=== PATIENT | male | born 1965 | race Caucasian/White ===

== ENCOUNTER → 2020-01-06 16:14 | Outpatient (CLI) | payer OTHER, SELFPAY ==
--- NOTE | ~2020-01-06 | XR_ITS ---
EXAMINATION: XR shoulder RT min 2V EXAM DATE: 01/06/2020 16:37 INDICATION: No known recent injury provided at this time. Pain of the right shoulder. TECHNIQUE: The following right shoulder projections obtained: frontal projection with internal rotati on, frontal projection with external rotation, Grashey, and axillary (4+ views). There is no prior s tudy for comparison. FINDINGS: No evidence of right shoulder rotator cuff calcific tendinosis. There is moderate acromi oclavicular joint primary osteoarthritis. There are no acute fractures or dislocations identified. T here is no subcutaneous gas. The soft tissue is unremarkable. There are no radiopaque foreign bodi es. IMPRESSION: Moderate right acromioclavicular osteoarthritis. Reviewed, dictated and finalized at location A.
--- NOTE | ~2020-01-06 | XR_ITS ---
EXAMINATION:[id number] DATE: 01/06/2020 16:37 INDICATION: Neck pain TECHNIQUE: AP, lateral, lateral swimmers and odontoid views of the cervical spine are provided. COMPARISON: 02/22/2015 FINDINGS: There is straightening of the cervical spine which can be positional or due to muscular spa sm. Alignment is normal. The odontoid is intact. No fracture is identified. The vertebral body height s are maintained. There is mild loss of intervertebral disc space height at C6-7. Small degenerative osteophytes project from the anterior endplates of multiple vertebral bodies. Prevertebral soft tissu es are normal. There is mild facet osteoarthritis at C4-5. IMPRESSION: 1. Mild cervical spondylosis without acute findings or significant interval change. Reviewed, dictated and finalized at location A. IMPRESSION: 1. Mild cervical spondylosis without acute findings or significant interval lo nge.
== END ==
PROVIDERS: PCP Family Medicine; Visit Provider Physician Assistant
DX: M54.12 Radiculopathy, cervical region (principal); M25.511 Pain in right shoulder; M19.011 Primary osteoarthritis, right shoulder; M47.812 Spondylosis without myelopathy or radiculopathy, cervical region
CPT/HCPCS: 72040; 73030

== ENCOUNTER 2022-03-03 00:59 | Day surgery (SDC) | payer OTHER, SELFPAY ==
[2022-02-21 13:50] VITALS: BMI 38.7
[2022-03-03 09:06] VITALS: BP 127/78; PULSE 69; RESP 18; TEMP 36.8; O2SAT 98; BMI 39.5
[2022-03-03] MEDS: LACTATED RINGERS 1,000 ML 150 ML IV CONT (09:14)
--- NOTE | 2022-03-03 09:16 | WPDANESEPPF ---
Anes - Initial Pre Proc Eval Procedure: Operation Date: 03/03/22 10:00 Proposed Procedures p Screening Colonoscopy - Dwaine Koo MD Date/Time: 03/03/22 09:16 Surgeon: Dwaine Koo MD Pre Op Diagnosis: fam history of colon cancer Patient Data Age: 56 Gender: M Height: 1.78 m Weight: 125 kg Last Vital Signs Temp 98.2 F 03/03/22 09:06 Pulse 69 03/03/22 09:06 Resp 18 03/03/22 09:06 BP 127/78 03/03/22 09:06 Pulse Ox 98 03/03/22 09:06 O2 Del Method Room Air 03/03/22 09:06 Allergies Allergy/AdvReac Type Severity Reaction Status Date / Time tomato Allergy Unknown INCREASED Verified 02/21/22 13:48 HEART RATE Home Medications Medication Instructions Recorded Confirmed Type testosterone cypionate 200 mg/mL 200 mg IM ONCE 06/22/21 02/21/22 History intramuscular oil (Depo-Testosterone) simvastatin 40 mg tablet See Rx Instructions .Route 12/16/21 02/21/22 Rx .COMPLEX #90 tabs aripiprazole 2 mg tablet 2 mg PO DAILY 01/16/22 02/21/22 History finasteride 5 mg tablet 5 mg PO DAILY 01/16/22 02/21/22 History topiramate 25 mg tablet 25 mg PO DAILY 01/16/22 02/21/22 History vilazodone 40 mg tablet (Viibryd) 40 mg PO DAILY 01/16/22 02/21/22 History lisinopril 10 See Rx Instructions .Route 02/24/22 Rx mg-hydrochlorothiazide 12.5 mg .COMPLEX #90 tabs tablet sodium,potassium,mag sulfates 17.5 See Rx Instructions PO .COMPLEX 02/27/22 Rx gram-3.13 gram-1.6 gram oral soln #354 mL (Suprep Bowel Prep Kit) Patient hx anesthesia problems: none Family hx anesthesia problems: none Results Review: All pre-operative results and documents have been reviewed as part of the pre-operative evaluation. [facility] Past Medical History Medical History Biceps rupture, distal Family History Family History Father Diabetes mellitus Hypertension Family history of elevated blood lipids Carcinoma of colon, Onset Age: 69 Family history of aortic aneurysm Family history of coronary artery disease Asthma Mother Family history of cardiovascular disease Family history of coronary artery disease Diabetes mellitus Hypertension Grandparent Cerebrovascular accident Other Family history of lung disease Family history of malignant neoplasm Social History Social History (Updated 02/20/22 @ 16:15 by KATLIN Alberts) Smoking status: Never smoker Tobacco type: smokeless tobacco Smokeless tobacco user: chewing tobacco Second hand tobacco smoke exposure: No Additional smoking assessment comments: Used chewing tobacco for 15 to 20 years Alcohol intake: current Alcohol use details: RARELY Substance use: never Substance use type: does not use Lack of Transportation: No Lack of Food: Never True Current Housing: I Have Housing Concerned About Future Housing: No Difficulty Paying Gas/Electric Bills: No Difficulty Paying for Meds: No Currently Unemployed: No Education: Trade/Vocational Certificate Difficulty w/ Childcare or Family Care: No Living arrangements: alone 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 Gender identity (if verbalized by the patient): Male Sexual Orientation (if Verbalized by the Patient): Straight or Heterosexual Spiritual care concerns: No Agree to blood products: Yes Anes - Eval Final PreProcedure Day of Procedure 03/03/22 09:16 Patient weight: normal Heart: regular rate and rhythm Lungs: clear to auscultation Airway: Mallampati scale class III Neurological: alert and oriented Last oral intake: >/= 8 hours ASA classification: III Emergent: no Anesthetic plan: proceed Anesthesia type and monitoring: general GIVS and standard monitoring Results Review: All pre-operative results and documents have been reviewed as part of the pre-operative evaluation. Informed Consent
--- NOTE | 2022-03-03 09:46 | PM.HPGS ---
History of Present Illness History of Present Illness Consent: Risks, benefits, and alternatives have been discussed and questions answered. Patient agrees to proceed with procedure. Chief complaint: fam history of colon cancer Narrative: Maulik Zhu Jr. is a 56 year old male Presents for colonoscopy. Patient's current weight appetite and bowel movements are normal. Patient denies abdominal pain. He has had no bleeding. Family history is significant that his father had colon cancer, his brother had colon polyps. Patient presents today for neoplasia screening colonoscopy. Last exam in stool 10 years ago. Review of Systems Review of Systems: Review of systems noncontributory. [facility] Past Medical History Medical History Biceps rupture, distal Family History Family History Father Diabetes mellitus Hypertension Family history of elevated blood lipids Carcinoma of colon, Onset Age: 69 Family history of aortic aneurysm Family history of coronary artery disease Asthma Mother Family history of cardiovascular disease Family history of coronary artery disease Diabetes mellitus Hypertension Grandparent Cerebrovascular accident Other Family history of lung disease Family history of malignant neoplasm Social History Social History (Updated 02/20/22 @ 16:15 by KATLIN Alberts) Smoking status: Never smoker Tobacco type: smokeless tobacco Smokeless tobacco user: chewing tobacco Second hand tobacco smoke exposure: No Additional smoking assessment comments: Used chewing tobacco for 15 to 20 years Alcohol intake: current Alcohol use details: RARELY Substance use: never Substance use type: does not use Lack of Transportation: No Lack of Food: Never True Current Housing: I Have Housing Concerned About Future Housing: No Difficulty Paying Gas/Electric Bills: No Difficulty Paying for Meds: No Currently Unemployed: No Education: Trade/Vocational Certificate Difficulty w/ Childcare or Family Care: No Living arrangements: alone 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 Gender identity (if verbalized by the patient): Male Sexual Orientation (if Verbalized by the Patient): Straight or Heterosexual Spiritual care concerns: No Agree to blood products: Yes Meds Home Medications and Allergies Home Medications Medication Instructions Recorded Confirmed Type testosterone cypionate 200 mg/mL 200 mg IM ONCE 06/22/21 02/21/22 History intramuscular oil (Depo-Testosterone) simvastatin 40 mg tablet See Rx Instructions .Route 12/16/21 02/21/22 Rx .COMPLEX #90 tabs aripiprazole 2 mg tablet 2 mg PO DAILY 01/16/22 02/21/22 History finasteride 5 mg tablet 5 mg PO DAILY 01/16/22 02/21/22 History topiramate 25 mg tablet 25 mg PO DAILY 01/16/22 02/21/22 History vilazodone 40 mg tablet (Viibryd) 40 mg PO DAILY 01/16/22 02/21/22 History lisinopril 10 See Rx Instructions .Route 02/24/22 Rx mg-hydrochlorothiazide 12.5 mg .COMPLEX #90 tabs tablet sodium,potassium,mag sulfates 17.5 See Rx Instructions PO .COMPLEX 02/27/22 Rx gram-3.13 gram-1.6 gram oral soln #354 mL (Suprep Bowel Prep Kit) Allergies Allergy/AdvReac Type Severity Reaction Status Date / Time tomato Allergy Unknown INCREASED Verified 02/21/22 13:48 HEART RATE Vital Signs Vital Signs - 24 hr 03/03/22 09:06 Temperature 98.2 F Pulse Rate 69 Respiratory Rate 18 Blood Pressure 127/78 Pulse Oximetry 98 Oxygen Delivery Room Air Exam Narrative: Physical exam reveals patient be alert. Vital signs stable. HEENT exam is unremarkable. Patient anicteric. Lungs are clear to auscultation and percussion. Heart is without murmur or extra sounds. Abdomen bowel sounds are present soft nontender with no organomegaly. Digital external rectal exam is
[2022-03-03 10:14] VITALS: BP 102/75; PULSE 92; RESP 20; O2SAT 97
[2022-03-03 10:24] VITALS: BP 110/69; PULSE 80; RESP 20; O2SAT 97
[2022-03-03 10:34] VITALS: BP 129/65; PULSE 75; RESP 18; O2SAT 97
== END 2022-03-03 10:42 | disposition home or self-care (01) ==
PROVIDERS: PCP Family Medicine; Visit Provider Internal Medicine Gastroenterology
PROC: 0DJD8ZZ Inspection of Lower Intestinal Tract, Via Natural or Artificial Opening Endoscopic (ICD-10-PCS; CPT 45378; principal; 2022-03-03 10:00)
DX: Z12.11 Encounter for screening for malignant neoplasm of colon (principal); K64.8 Other hemorrhoids; Z80.0 Family history of malignant neoplasm of digestive organs; F17.220 Nicotine dependence, chewing tobacco, uncomplicated
CPT/HCPCS: 45378; J2704; J7120

== ENCOUNTER 2023-01-29 09:50 | Outpatient (CLI) | payer OTHER, SELFPAY ==
--- NOTE | 2023-02-19 17:27 | WPDHOMESLEEP ---
Sleep Study - Home Unattended Date of Study: 01/29/23 Ordering Provider: Papi Bah MD Interpreting Provider: Joanna Batres, DO Home Sleep Study Type: Watch PAT Height: 1.78 m Weight: 127.006 kg Body Mass Index: 40.1 Neck Circumference (inches): 18 [place]: 11 Reason for Sleep Study Unrefreshing sleep, snoring Sleep History The patient is a 57-year-old male with depression, hypertension, benign prostatic hyperplasia, hyperlipidemia and hypogonadism that had a sleep study ordered by his primary care physician for evaluation of sleep apnea. The patient frequently awakens from sleep short of breath. He occasionally awakens at night with cough. He frequently snores and is frequently loud enough others complain. He frequently has trouble sleeping when he has a cold. He frequently wakes up gasping for air throughout the night. He frequently has breathing problems at night observed by himself or others. He occasionally sweats excessively at night. He occasionally has heart palpitations or irregular heartbeats during the night. He frequently falls asleep during the day but never while driving. He denies sleep paralysis and cataplexy. He occasionally has trouble at school or work due to sleepiness. He occasionally experiences vivid dreamlike scenes upon awakening or falling asleep. He denies feeling afraid of going to sleep. He denies having nightmares. He occasionally remembers his dreams. He occasionally has thoughts racing through his mind. He occasionally feels sad, depressed and anxious. He denies having muscular tension. He occasionally notices parts of his body jerk. He rarely kicks during the night. He rarely has crawling and aching feelings in his legs and rarely has leg pain during the night. He frequently grinds his teeth during sleep but occasionally awakens with morning jaw pain. He is rarely bothered by pain during the day and rarely awakened by pain during the night. He occasionally wakes up feeling stiff in morning. He rarely wakes up with sore or achy muscles. He rarely wakes up with pain in the neck, spine or other joints. He goes to bed at 9:00 p.m. on both weekdays and weekends. It takes him 20 minutes to fall asleep. He wakes up 6-10 times throughout the night to get a drink and laid back down. It can take him 20 minutes or up to 2 hours to fall back asleep. He wakes up at 4:00 a.m. on weekdays and at 6:00 a.m. the weekends. He typically gets 8-9 hours of sleep per night. He will stay in bed for 10 minutes after waking up in the morning. He currently lives with his and adult child. He denies consuming any caffeinated beverages within 2 hours of bedtime. He denies engaging in physical exercise before bedtime. He will read and watch television before falling asleep. He will take naps in afternoon or the evening but they are not refreshing. He will consume caffeinated beverages throughout the day. He denies tobacco, alcohol and recreational drug use. [facility] Past Medical History Medical History Acute right-sided low back pain without sciatica Biceps rupture, distal Other asthma Other mixed anxiety disorders Unilateral inguinal hernia, without obstruction or gangrene, not specified as recurrent Family History Family History Father Diabetes mellitus Hypertension Family history of elevated blood lipids Carcinoma of colon, Onset Age: 69 Family history of aortic aneurysm Family history of coronary artery disease Asthma Mother Family history of cardiovascular disease Family history of coronary artery disease Diabetes mellitus Hypertension Grandparent Cerebrovascular accident Other Family history of lung disease Family history of malignant neoplasm Social History Social History Social History: Ca
[2023-02-19 17:42] VITALS: BMI 40.1
--- NOTE | 2023-04-23 16:55 | WPDSLEEPSTUD ---
Sleep Study Ordering Provider: Papi Bah MD Interpreting Physician: Joanna Batres DO Height: 1.78 m Weight: 127.006 kg Body Mass Index: 40.1 Neck Circumference (inches): 18 [place]: 11 Reason for Sleep Study The patient had a WatchPAT home sleep test on 01/29/2023 that showed an overall AHI of 39.9 with desaturation down to 74%. He spent 26.4 minutes with SpO2<88%. Sleep History The patient is a 57-year-old male with depression, hypertension, benign prostatic hyperplasia, hyperlipidemia and hypogonadism that had a sleep study ordered by his primary care physician for evaluation of sleep apnea.? The patient frequently awakens from sleep short of breath.? He occasionally awakens at night with cough.? He frequently snores and is frequently loud enough others complain.? He frequently has trouble sleeping when he has a cold.? He frequently wakes up gasping for air throughout the night.? He frequently has breathing problems at night observed by himself or others.? He occasionally sweats excessively at night.? He occasionally has heart palpitations or irregular heartbeats during the night.? He frequently falls asleep during the day but never while driving.? He denies sleep paralysis and cataplexy.? He occasionally has trouble at school or work due to sleepiness.? He occasionally experiences vivid dreamlike scenes upon awakening or falling asleep.? He denies feeling afraid of going to sleep.? He denies having nightmares.? He occasionally remembers his dreams.? He occasionally has thoughts racing through his mind.? He occasionally feels sad, depressed and anxious.? He denies having muscular tension.? He occasionally notices parts of his body jerk.? He rarely kicks during the night.? He rarely has crawling and aching feelings in his legs and rarely has leg pain during the night.? He frequently grinds his teeth during sleep but occasionally awakens with morning jaw pain.? He is rarely bothered by pain during the day and rarely awakened by pain during the night.? He occasionally wakes up feeling stiff in morning.? He rarely wakes up with sore or achy muscles.? He rarely wakes up with pain in the neck, spine or other joints. He goes to bed at 9:00 p.m. on both weekdays and weekends.? It takes him 20 minutes to fall asleep.? He wakes up 6-10 times throughout the night to get a drink and laid back down.? It can take him 20 minutes or up to 2 hours to fall back asleep.? He wakes up at 4:00 a.m. on weekdays and at 6:00 a.m. the weekends.? He typically gets 8-9 hours of sleep per night.? He will stay in bed for 10 minutes after waking up in the morning.? He currently lives with his and adult child.? He denies consuming any caffeinated beverages within 2 hours of bedtime.? He denies engaging in physical exercise before bedtime.? He will read and watch television before falling asleep.? He will take naps in afternoon or the evening but they are not refreshing. He will consume caffeinated beverages throughout the day.? He denies tobacco, alcohol and recreational drug use. [facility] Past Medical History Medical History Acute right-sided low back pain without sciatica Biceps rupture, distal Other asthma Other mixed anxiety disorders Unilateral inguinal hernia, without obstruction or gangrene, not specified as recurrent Family History Family History Father Diabetes mellitus Hypertension Family history of elevated blood lipids Carcinoma of colon, Onset Age: 69 Family history of aortic aneurysm Family history of coronary artery disease Asthma Mother Family history of cardiovascular disease Family history of coronary artery disease Diabetes mellitus Hypertension Grandparent Cerebrovascular accident Other Family history of lung disease Family history of malignant neoplasm Social History Social History (Reviewed 04/23/23
== END 2023-01-30 09:46 | disposition home or self-care (01) ==
LOC: ANHCSM 09:51
PROVIDERS: PCP Family Medicine; Visit Provider Family Medicine
DX: G47.33 Obstructive sleep apnea (adult) (pediatric) (principal)
CPT/HCPCS: 95800

== ENCOUNTER 2023-04-02 08:24 | Outpatient (CLI) | payer OTHER, SELFPAY ==
--- NOTE | 2023-04-23 16:55 | SLEEP_ITS ---
This report was moved to the correct visit on 04/24/2023. The original report was signed by Joanna Batres DO on 04/23/231811. Sleep Study Ordering Provider: Papi Bah MD Interpreting Physician: Joanna Batres DO Height: 1.78 m Weight: 127.006 kg Body Mass Index: 40.1 Neck Circumference (inches): 18 [place]: 11 Reason for Sleep Study The patient had a WatchPAT home sleep test on 01/29/2023 that showed an overall AHI of 39.9 with desaturation down to 74%. He spent 26.4 minutes with SpO2<88%. Sleep History The patient is a 57-year-old male with depression, hypertension, benign prostatic hyperplasia, hyperlipidemia and hypogonadism that had a sleep study ordered by his primary care physician for evaluation of sleep apnea.? The patient frequently awakens from sleep short of breath.? He occasionally awakens at night with cough.? He frequently snores and is frequently loud enough others complain.? He frequently has trouble sleeping when he has a cold.? He frequently wakes up gasping for air throughout the night.? He frequently has breathing problems at night observed by himself or others.? He occasionally sweats excessively at night.? He occasionally has heart palpitations or irregular heartbeats during the night.? He frequently falls asleep during the day but never while driving.? He denies sleep paralysis and cataplexy.? He occasionally has trouble at school or work due to sleepiness.? He occasionally experiences vivid dreamlike scenes upon awakening or falling asleep.? He denies feeling afraid of going to sleep.? He denies having nightmares.? He occasionally remembers his dreams.? He occasionally has thoughts racing through his mind.? He occasionally feels sad, depressed and anxious.? He denies having muscular tension.? He occasionally notices parts of his body jerk.? He rarely kicks during the night.? He rarely has crawling and aching feelings in his legs and rarely has leg pain during the night.? He frequently grinds his teeth during sleep but occasionally awakens with morning jaw pain.? He is rarely bothered by pain during the day and rarely awakened by pain during the night.? He occasionally wakes up feeling stiff in morning.? He rarely wakes up with sore or achy muscles.? He rarely wakes up with pain in the neck, spine or other joints. He goes to bed at 9:00 p.m. on both weekdays and weekends.? It takes him 20 minutes to fall asleep.? He wakes up 6-10 times throughout the night to get a drink and laid back down.? It can take him 20 minutes or up to 2 hours to fall back asleep.? He wakes up at 4:00 a.m. on weekdays and at 6:00 a.m. the weekends.? He typically gets 8-9 hours of sleep per night.? He will stay in bed for 10 minutes after waking up in the morning.? He currently lives with his and adult child.? He denies consuming any caffeinated beverages within 2 hours of bedtime.? He denies engaging in physical exercise before bedtime.? He will read and watch television before falling asleep.? He will take naps in afternoon or the evening but they are not refreshing. He will consume caffeinated beverages throughout the day.? He denies tobacco, alcohol and recreational drug use. [facility] Past Medical History Medical History Acute right-sided low back pain without sciatica Biceps rupture, distal Other asthma Other mixed anxiety disorders Unilateral inguinal hernia, without obstruction or gangrene, not specified as recurrent Family History Family History Father Diabetes mellitus Hypertension Family history of elevated blood lipids Carcinoma of colon, Onset Age: 69 Family history of aortic aneurysm Family history of coronary artery disease Asthma Mother
== END 2023-04-03 05:29 | disposition home or self-care (01) ==
LOC: ANHCSM 08:26
PROVIDERS: PCP Family Medicine; Visit Provider Family Medicine
DX: G47.33 Obstructive sleep apnea (adult) (pediatric) (principal)
CPT/HCPCS: 95811

== ENCOUNTER 2023-04-18 09:41 | Outpatient (CLI) | payer OTHER, SELFPAY ==
[2023-04-18 14:04] LABS: Basophils Absolute Auto 0.1 K/mm3 (0.0-0.1); Basophils Percent Auto 0.8 % (0.2-1.2); Eosinophils Absolute Auto 0.2 K/mm3 (0-0.3); Eosinophils Percent Auto 2.5 % (0-4.4); Hematocrit 47.5 % (42.0-52.0); Immature Granulocyte Percent A 1.1 % (0-0.5); Lymphocytes Absolute Auto 2.24 K/mm3 (0.9-3.2); Lymphocytes Percent Auto 23.8 % (18.3-44.2); Mean Corpuscular HGB Conc 33.7 g/dl (32-36); Mean Corpuscular Hemoglobin 30.3 pg (26-34); Mean Platelet Volume 10.6 fl (7.4-10.4); Monocytes Absolute Auto 0.9 K/mm3 (0.1-0.6); Monocytes Percent Auto 9.9 % (2.6-8.5); Neutrophils Absolute Auto 5.8 K/mm3 (1.3-6.7); Neutrophils Percent Auto 61.9 % (45.5-73.1); Platelet Count Result 213 k/mm3 (150-375); Red Blood Count 5.28 M/mm3 (4.6-6.20); White Blood Count 9.4 K/mm3 (4.5-10.0)
[2023-04-18 14:19] LABS: D Dimer 0.37 ug/mL (<0.48)
[2023-04-18 15:19] LABS: Alanine Aminotransferase 60 U/L (6-50); Albumin Level 4.5 g/dL (3.5-5.1); Alkaline Phosphatase 76 U/L (38-126); Anion Gap 7 mmol/L (8-16); Aspartate Amino Transferase 43 U/L (17-59); Bilirubin,Total 0.5 mg/dL (0.2-1.3); Blood Urea Nitrogen 20 mg/dL (9-20); Calcium 9.7 mg/dL (8.4-10.2); Carbon Dioxide 29 mmol/L (22-30); Chloride 102 mmol/L (98-107); Cholesterol 263 mg/dL (0-200); Estimated Glomerular Filt Rate > 60; Glucose 130 mg/dL (65-110); HDL Direct 35 mg/dL; Potassium 4.4 mmol/L (3.4-5.0); Sodium 138 mmol/L (137-145); Triglycerides 490 mg/dL (<150)
[2023-04-18 15:28] LABS: NT Pro B Type Natriuretic Pept < 20 pg/mL (19.9-100)
[2023-04-18 15:30] LABS: LDL Cholesterol Direct 124 mg/dL
[2023-04-18 16:38] LABS: Hemoglobin A1C 6.1 % (<5.7)
== END 2023-04-18 09:42 | disposition home or self-care (01) ==
LOC: ANHGOSHLAB 09:42
PROVIDERS: PCP Family Medicine; Visit Provider Family Medicine
DX: E78.5 Hyperlipidemia, unspecified (principal); R00.0 Tachycardia, unspecified; R06.02 Shortness of breath
CPT/HCPCS: 36415; 80053; 80061; 83036; 83880; 84443; 85025; 85380

== ENCOUNTER 2023-04-26 09:11 | Outpatient (CLI) | payer OTHER, SELFPAY ==
--- NOTE | 2023-04-26 09:24 | ECHO_ITS ---
Patient Info Name: Maulik Zhu Age: 57 years : 1965 Gender: Male Ht: 70 in Wt: 283 lbs BSA: 2.57 m2 HR: 89 bpm BP: 140 / 82 mmHg Technical Quality: Fair Exam Date: 04/26/2023 10:05 AM Exam Location: Echo Lab Patient Status: Outpatient Admit Date: 04/26/2023 Staff Ordering Physician: Migdalia Espinosa Attending Provider: Migdalia Espinosa Referring Physician: Francisca HERNANDEZ; Exam Type: CA echo doppler color flow Study Info Indications R06.02 - Shortness of breath Complete two-dimensional, color flow and Doppler transthoracic echocardiogram is performed. Summary 1. Complete two-dimensional, color flow and Doppler transthoracic echocardiogram is performed. 2. Left ventricular chamber dimension is normal. 3. Left ventricular systolic function is normal, estimated at 60-65%. 4. There is mild concentric increased left ventricular wall thickness. 5. The left ventricular diastolic function is grade I diastolic dysfunction. 6. E/e' 8 is minimally elevated. 7. Left atrial chamber dimension is moderately enlarged. Left Ventricle E/e' 8 is minimally elevated. Left ventricular chamber dimension is normal. Left ventricular systolic function is normal, estimated at 60-65%. There is mild concentric increased left ventricular wall thickness. The left ventricular diastolic function is grade I diastolic dysfunction. Right Ventricle Right ventricular systolic function is normal and with normal TAPSE 2.3 cm. Right ventricular chamber dimension is normal. Left Atria Left atrial chamber dimension is moderately enlarged. Right Atria Right atrial chamber dimension is normal. Aortic Valve The aortic valve is trileaflet. There is no aortic valve stenosis. There is no aortic valve regurgitation. Pulmonic Valve There is no pulmonic regurgitation. Mitral Valve There is no mitral valve stenosis. There is no mitral valve regurgitation. Tricuspid Valve There is no tricuspid valve regurgitation. Pericardium/Pleural There is no pericardial effusion. Inferior Vena Cava Normal inferior vena cava with >50% collapse upon inspiration consistent with normal right atrial pressure, 5 mmHg. Aorta The aortic root size at the sinus of Valsalva is normal. Left Ventricular Outflow Tract Name Value Normal LVOT 2D LVOT Diameter 2.1 cm LVOT Doppler LVOT Peak Gradient 3 mmHg LVOT Mean Gradient 2 mmHg LVOT VTI 23 cm LVOT VTI/AV VTI Ratio 0.9 LVOT Stroke Volume 76 ml LVOT CO 4.8 l/min LVOT CI 1.8 l/min/m2 Pulmonic Valve Name Value Normal PV Doppler PV Peak Gradient 2 mmHg PV Regurgitation Doppler FL Peak End Diastolic Velocity
== END 2023-04-26 09:12 | disposition home or self-care (01) ==
LOC: ANHCARD 09:11
PROVIDERS: PCP Family Medicine; Visit Provider Nurse Practitioner Family
DX: R00.0 Tachycardia, unspecified (principal); G47.33 Obstructive sleep apnea (adult) (pediatric); R06.02 Shortness of breath
CPT/HCPCS: 93306

== ENCOUNTER 2024-07-15 15:30 | Outpatient (RCR) | payer OTHER, SELFPAY | END 2024-08-25 09:31 | disposition home or self-care (01) | LOC: ANHDMC 15:30 | PROVIDERS: PCP Family Medicine; Visit Provider Nurse Practitioner Family | DX: E11.9 Type 2 diabetes mellitus without complications (principal); Z71.89 Other specified counseling | CPT/HCPCS: G0108 ==

== ENCOUNTER 2024-12-07 10:52 | Emergency (ER) | payer OTHER, SELFPAY ==
[2024-12-07 11:00] VITALS: BP 116/73; PULSE 99; RESP 18; TEMP 36.8; O2SAT 97
--- NOTE | 2024-12-07 11:43 | ED.URI ---
HPI - URI/Sore Throat General Chief Complaint: Upper Respiratory Infection Stated Complaint: Sinus Time Seen by Provider: 12/07/24 11:43 Source: patient Mode of arrival: ambulatory Limitations: no limitations History of Present Illness HPI Narrative: 59 yo M presents with c/o sinus pain, pressure, congestion for 2 wks. Symptoms getting progressively worse. using Claritin, Flonase and pseudoephedrine. Reports that drainage has changed from yellow to green. Patient reports fatigue the past 2 days. Patient concern for Sinus infection. Patient Uses CPAP, is having difficulty wearing mask due to congestion. All systems reviewed and negative except as noted above. Related Data Home Medications ?Medication ?Instructions ?Recorded ?Confirmed ?Last Taken ?Type finasteride 5 mg tablet 5 mg PO DAILY 01/16/22 07/30/24 Unknown History vilazodone 40 mg tablet (Viibryd) 40 mg PO DAILY 01/16/22 07/30/24 Unknown History Allergies Allergy/AdvReac Type Severity Reaction Status Date / Time tomato Allergy Unknown INCREASED Verified 07/30/24 11:18 HEART RATE NKDA Allergy Mild NONE Uncoded 07/30/24 11:18 PMFSH Past Medical History Medical History Unilateral inguinal hernia, without obstruction or gangrene, not specified as recurrent Other mixed anxiety disorders Other asthma Acute right-sided low back pain without sciatica Biceps rupture, distal Surgical History Surgical History S/P peroneal tendon repair Right Ankle Family History Family History Father Diabetes mellitus Hypertension Family history of elevated blood lipids Carcinoma of colon, Onset Age: 69 Family history of aortic aneurysm Family history of coronary artery disease Asthma Mother Family history of cardiovascular disease Family history of coronary artery disease Diabetes mellitus Hypertension Grandparent Cerebrovascular accident Other Family history of lung disease Family history of malignant neoplasm Social History Social History Social History: Caffeine-minimal Smoking status: Never smoker Tobacco type: smokeless tobacco Smokeless tobacco user: chewing tobacco Second hand tobacco smoke exposure: No Additional smoking assessment comments: Used chewing tobacco for 15 to 20 years Alcohol intake: current Alcohol use details: RARELY Substance use: never Substance use type: does not use Do You Feel Safe in your Home?: Yes Lack of Transportation: No Lack of Food: Never True Current Housing: I Have Housing Concerned About Future Housing: No Difficulty Paying Gas/Electric Bills: No Difficulty Paying for Meds: No Currently Unemployed: No Education: Trade/Vocational Certificate Difficulty w/ Childcare or Family Care: No Living arrangements: alone Occupation/Education: occupation 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 There is no relevant family history pertinent to the presenting complaint. Exam Narrative: GENERAL: This is a well-nourished, well-developed patient, Ill-appearing but no acute distress HEAD: normocephalic, atraumatic. EYES: PERRL. erythematous to lower eyelids, conjunctiva injected bilaterally. No drainage bilaterally. Vision is grossly intact. EARS: External ears normal, auditory canals clear and without drainage, Fluid bilateral TMs without erythema or perforation. Hearing grossly intact. NOSE: External nose normal with Purulent nasal drainage, swelling and erythema to bilateral nares. Right-sided maxillary sinus tenderness on palpation. THROAT: Mucous membranes moist, Erythematous with purulent postnasal drainage. NECK: Neck supple, non-tender without lymphadenopathy, masses or thyromegaly. CARDIOVASCULAR: Regular rate and rhythm without murmurs, gallops, or rubs. RESPIRATORY: Clear to auscultation. Breath sounds equal bilaterally. No wheezes, rales, or rhonchi. SKIN: warm, Dry, intact with no suspicious lesions or rash, good texture and turgor. NEURO: awake, alert, and oriented to person, place and time. There were no obvious focal neurologic abnormalities. EXTREMITIES: No joint tenderness, effusion, or edema noted. Course Course Level of Care: Express Care Visit Vital Signs Vital signs: Vital Signs Temperature 36.8 C 12/07/24 11:00 Pulse Rate 99 12/07/24 11:00 Respiratory Rate 18 12/07/24 11:00 Blood Pressure 116/73 12/07/24 11:00 Pulse Oximetry 97 12/07/24 11:00 Oxygen Delivery Room Air 12/07/24 11:00 Temperature 36.8 C 12/07/24 11:00 Pulse Rate 99 12/07/24 11:00 Respiratory Rate 18 12/07/24 11:00 Blood Pressure 116/73 12/07/24 11:00 Pulse Oximetry 97 12/07/24 11:00 Oxygen Delivery Room Air 12/07/24 11:00 reviewed MDM - URI/Sore Throat MDM Narrative Medical decision making narrative: will treat patient for bacterial sinusitis due to duration of symptoms and exam findings. Differential Diagnosis Differential diagnosis: Likely upper respiratory infection, sinusitis, viral infection, influenza and pharyngitis Discharge Plan Discharge Clinical Impression: Acute bacterial sinusitis Patient Disposition: Home Condition: Stable Instructions: Antibiotic Form, Sinusitis (ED) Additional Instructions: take antibiotic as prescribed until gone. Continue Flonase, Claritin in pseudoephedrine as directed on packaging. Drink at least 64 oz of water a day. See your doctor if symptoms are not improving. Patient Language: Bruneian Prescriptions: New amoxicillin-pot clavulanate 875-125 mg tablet 1 tablet PO Q12H 10 Days Qty: 20 0RF No Action vilazodone [Viibryd] 40 mg tablet 40 mg PO DAILY Rx Instructions: must administer with a meal/food finasteride 5 mg tablet 5 mg PO DAILY (DME) CPAP See Rx Instructions .Route .MEDSUPPLY Qty: 1 0RF Rx Instructions: Resmed AirSense 11 CPAP at 15 cm H2O, size large Resmed AirTouch F20 full face mask, CPAP filters/tubing and heated humidity Length of need: 99+ years (DME) mask for cpap See Rx Instructions .Route .MEDSUPPLY Qty: 1 0RF Rx Instructions: nasal pillows mask for cpap lisinopril-hydrochlorothiazide 10-12.5 mg tablet See Rx Instructions .ROUTE .COMPLEX Qty: 180 3RF Dose Instruction: TAKE 2 TABLETS BY MOUTH DAILY Rx Instructions: TAKE 2 TABLETS BY MOUTH DAILY Jardiance 10 mg tablet 10 mg PO DAILY Qty: 90 3RF metformin 500 mg tablet 1,000 mg PO BIDWMEAL Qty: 360 3RF simvastatin 40 mg tablet See Rx Instructions .ROUTE .COMPLEX Qty: 90 1RF Dose Instruction: TAKE 1 TABLET BY MOUTH EVERY NIGHT AT BEDTIME Rx Instructions: TAKE 1 TABLET BY MOUTH EVERY NIGHT AT BEDTIME Follow-up/Referrals: Papi Bah MD [Primary Care Provider, [facility]] Time of Disposition: 11:48
== END 2024-12-07 11:57 | disposition home or self-care (01) ==
PROVIDERS: Emergency Provider Nurse Practitioner Family; PCP Family Medicine
DX: J01.90 Acute sinusitis, unspecified (principal); F17.220 Nicotine dependence, chewing tobacco, uncomplicated
CPT/HCPCS: 99213; G0463